=== PATIENT | male | born 1965 | race Caucasian/White ===

== ENCOUNTER → 2017-12-23 | Outpatient (CLI) | payer OTHER ==
[~2017-12-23] MED LIST: CHLORHEXIDINE GLUCONATE 2 % 1 PACK (2 CLOTHS) TOPICAL PRN; INSULIN HUMAN REGULAR 1,000 UNITS/10 ML VIAL SQ PRN; LACTATED RINGER'S 1000 ML IV PRN; LOVA20TA PO; METO1TAB9 PO; METOPROLOL TARTRATE 25 MG TAB PO PRN; POVIDONE IODINE 5% (ANTISEPSIS KIT) 4 APPLICATIONS EACH NARE PRN; PROPOFOL 200 MG/20 ML AMP IV ONE; SODIUM CHLORID 0.9% 500 ML IV PRN
[2017-12-23 08:54] VITALS: BP 139/77; PULSE 80; RESP 20; TEMP 98.7; O2SAT 100
--- NOTE | 2017-12-23 12:21 | GIPROC ---
[facility] [address] [facility]. [facility], [address] COLONOSCOPY PROCEDURE REPORT EXAM DATE: 12/23/2017 PATIENT NAME: Emery Bernard MR #: [id number] BIRTHDATE: 1965 ENDOSCOPIST: Karime Shah MD ORDER #: [id number] DOPE MIXER: Suyapa Varma and Sriram Mason STATUS: outpatient INDICATIONS: The patient is a 52 yr old male here for a colonoscopy due to patient's family history of colon polyps PROCEDURE PERFORMED: Colonoscopy with biopsy MEDICATIONS: Per Anesthesia and None. PREP QUALITY: good ESTIMATED BLOOD LOSS: None CONSENT: The patient understands the risks and benefits of the procedure and understands that these risks include, but are not limited to: sedation, allergic reaction, infection, perforation and/or bleeding. Alternative means of evaluation and treatment include, among others: physical exam, x-rays, and/or surgical intervention. The patient elects to proceed with this endoscopic procedure. medical equipment was checked for proper function. Hand hygiene and appropriate measures for infection prevention was taken. After the risks, benefits and alternatives of the procedure were thoroughly explained, Informed consent was verified, confirmed and timeout was successfully executed by the treatment team. A digital exam revealed no abnormalities of the rectum The Pentax EC-[id number] endoscope was introduced through the anus and advanced to the cecum, which was identified by both the appendix and ileocecal valve. The instrument was then slowly withdrawn as the colon was fully examined. COLON FINDINGS: A sessile polyp measuring 6 mm in size was found in the ascending colon. A polypectomy was performed with cold forceps. The resection was complete and the polyp tissue was completely retrieved. Mild diverticulosis was noted in the sigmoid colon. The colon mucosa was otherwise normal. Retroflexed views revealed internal hemorrhoids and Retroflexed views revealed small internal hemorrhoids The scope was then completely withdrawn from the patient and the procedure terminated. PROCEDURE WITHDRAWAL TIME:10minutes ADVERSE EVENTS: There were no complications. IMPRESSIONS: 1. A sessile polyp was found in the ascending colon; polypectomy was performed with cold forceps 2. Mild diverticulosis was noted in the sigmoid colon 3. The colon mucosa was otherwise normal 4. Retroflexed views revealed internal hemorrhoids 5. Retroflexed views revealed small internal hemorrhoids 6. Revealed no abnormalities of the rectum RECOMMENDATIONS: 1. Await biopsy results. Biopsy results will not be ready for 7-10 days. If you don't hear from us in two weeks, call our office for results. 2. Continue surveillance 3. High fiber diet RECALL: Return 5 years Colonoscopy Karime Shah MD eSigned: Karime Shah MD 12/23/2017 12:20 PM cc: Catarino Alvarado M.D. PATIENT NAME: Emery Bernard MR#: [id number]
[2017-12-23 13:10] VITALS: BP 116/67; PULSE 70; RESP 18; TEMP 98.2; O2SAT 98
--- NOTE | 2017-12-23 16:29 | EKG ---
Date Performed: 12/23/2017 Time Performed: 09:00:43 PTAGE: 52 years EKG: Sinus rhythm NORMAL ECG when compared to prior EKG,patient is now in sinus rythm PREVIOUS TRACING : 06/16/2002 15.38 DOCTOR: Raven Patel Interpretating Date/Time 12/23/2017 16:28:55
== END ==
LOC: HSDC 08:13
PROVIDERS: ATTEND Internal Medicine Gastroenterology
DX: Z12.11 Encounter for screening for malignant neoplasm of colon (principal); Z83.71 Family history of colonic polyps; D12.2 Benign neoplasm of ascending colon; K64.8 Other hemorrhoids; K57.30 Diverticulosis of large intestine without perforation or abscess without bleeding; R00.0 Tachycardia, unspecified
CPT/HCPCS: 00812; 45380; 88305; 93005; J7120